=== PATIENT | female | born 1985 | race Caucasian/White ===

== ENCOUNTER → 2016-09-11 | Outpatient (CLI) | payer OTHER ==
--- NOTE | 2016-09-11 10:18 | US ---
EXAMINATION TYPE: US pelvic complete DATE OF EXAM: 09/11/2016 COMPARISON: NONE CLINICAL HISTORY: Pelvic Pain R10.2, Irregular Menses N92.6. Left pelvic pain during physicians exam, 2, para 2, abnormal cycles, history of 2 c-sections TECHNIQUE: Transabdominal (TA) Date of LMP: 08/23/2016 EXAM MEASUREMENTS: Uterus: 9.9 x 4.2 x 4.9 cm Endometrial Stripe: 0.5 cm Right Ovary: 2.3 x 2.5 x 2.9 cm Left Ovary: 3.2 x 2.0 x 1.6 cm 1. Uterus: anteverted 2. Endometrium: appears somewhat thin for patient's LMP, abnormal cycles 3. Right Ovary: wnl 4. Left Ovary: wnl 5. Bilateral Adnexa: wnl 6. Posterior cul-de-sac: wnl IMPRESSION: 1. Normal pelvic ultrasound.
== END | disposition home or self-care (01) ==
LOC: RADUSWWP 09:35
PROVIDERS: ATTEND Obstetrics & Gynecology
DX: N92.6 Irregular menstruation, unspecified (principal); R10.2 Pelvic and perineal pain
CPT/HCPCS: 76856